=== PATIENT | female | born 1985 | race Caucasian/White ===

== ENCOUNTER 2019-04-28 04:32 | Emergency (ER) | payer SELFPAY ==
[~2019-04-28] VITALS: Ht 157.5 cm; Wt 61.2 kg
[2019-04-28 04:53] VITALS: BP 127/85
[2019-04-28] MEDS ORDERED: TRAM-48 PO ×2 (05:11→05:12)
[2019-04-28] MEDS ORDERED: SULF1TAB24 PO (05:12)
--- NOTE | 2019-04-28 05:12 | PHYS DOC ---
Past Medical History Past Medical History: No Pertinent History Smoking: Cigarettes Adult General Chief Complaint Chief Complaint: ABSCESS HPI HPI Patient is a 33 year old female who presents with complaining of abscess. Patient states she had a "zit"on her face and was messing with it and scratched the area in left temporal area yesterday and since then has increasing pain and edema and was not able to sleep all night. Patient rated his pain 8 total night and denies drainage of pus, fever and chills, nausea and vomiting, blurred vision. Patient had history of previous MRSA. Last tetanus immunization was 4 years ago. Review of Systems Review of Systems Constitutional: Denies fever or chills [] Eyes: Denies change in visual acuity, redness, or eye pain [] HENT: Denies nasal congestion or sore throat [] Respiratory: Denies cough or shortness of breath [] Cardiovascular: No additional information not addressed in HPI [] GI: Denies abdominal pain, nausea, vomiting, bloody stools or diarrhea [] : Denies dysuria or hematuria [] Musculoskeletal: Denies back pain or joint pain [] Integument: Denies rash, reports skin lesions [] Neurologic: Denies headache, focal weakness or sensory changes [] Endocrine: Denies polyuria or polydipsia [] All other systems were reviewed and found to be within normal limits, except as documented in this note. Current Medications Current Medications Current Medications Medications (Trade) Dose Ordered Sig/Chaz Start Time Stop Time Status Last Admin Dose Admin Tramadol HCl (Ultram) 50 mg 1X ONCE 04/28/19 05:30 04/28/19 05:31 DC 04/28/19 05:19 50 MG Trimethoprim/ Sulfamethoxazole (Bactrim Ds) 1 tab 1X ONCE 04/28/19 05:30 04/28/19 05:31 DC 04/28/19 05:19 1 TAB Allergies Allergies Allergies Coded Allergies Type Severity Reaction Last Updated Verified No Known Drug Allergies 04/28/19 No Physical Exam Physical Exam Constitutional: Well developed, well nourished, mild distress, non-toxic appear ance. [] HENT: Normocephalic, atraumatic, area of edema and left temporal area with central puncture wound without erythema, drainage of pus or fluctuation. Eyes: PERRLA, EOMI, conjunctiva normal, no discharge. [] Neck: Normal range of motion, no tenderness, supple, no stridor. [] Cardiovascular:Heart rate regular rhythm, no murmur [] Lungs & Thorax: Bilateral breath sounds clear to auscultation [] Neurologic: Alert and oriented X 3, no focal deficits noted. [] Psychologic: Affect anxious, judgement normal, mood normal. [] Current Patient Data Vital Signs Vital Signs Date Time Temp Pulse Resp B/P (MAP) Pulse Ox O2 Delivery O2 Flow Rate FiO2 04/28/19 05:19 16 Room Air 04/28/19 04:53 98.5 81 127/85 (99) 97 98.5 EKG EKG [] Radiology/Procedures Radiology/Procedures [] Course & Med Decision Making Course & Med Decision Making Evaluation of patient in ER showed 33 y/o female with left temporal facial area cellulitis without abscess. Rx for Bactrim and Ultram was given. Dragon Disclaimer Dragon Disclaimer This electronic medical record was generated, in whole or in part, using a voice recognition dictation system. Departure Departure Impression: Primary Impression: Cellulitis and abscess of face Disposition: HOME, SELF-CARE (at [id number]) Condition: STABLE Patient Instructions: Cellulitis, Community-Associated MRSA Additional Instructions: Drink plenty of liquids Follow-up with your primary care physician in 2-3 days Return to ER if not getting better Scripts Tramadol Hcl (ULTRAM) 50 Mg Tablet 50 MG PO Q6HRS PRN for PAIN, #14 TAB 0 Refills Prov: NEIDA WILKINS MD 04/28/19 Sulfamethoxazole/Trimethoprim (BACTRIM DS TABLET) 1 Each Tablet 1 TAB PO BID for infection, #14 TAB Prov: NEIDA WILKINS MD 04/28/19 Tramadol Hcl (ULTRAM) 50 Mg Tablet 50 MG PO Q6HRS PRN for PAIN, #14 TAB 0 Refills Prov: NEIDA WILKINS MD 04/28/19 NEIDA WILKINS MD Apr 28, 2019 05:12
[2019-04-28] MEDS ORDERED: SMZ/TMP 800/160MG TABLET. PO ONE (05:30)
[2019-04-28] MEDS ORDERED: traMADol 50 MG TABLET PO ONE (05:30)
[2019-04-29] MEDS ORDERED: CEPH-264 PO (14:38)
[2019-04-29] MEDS ORDERED: NAPR-514 PO (14:38)
== END 2019-04-28 05:38 | disposition home or self-care (01) ==
LOC: ER 04:32
DX: L03.211 Cellulitis of face (principal); F17.210 Nicotine dependence, cigarettes, uncomplicated; Z86.14 Personal history of Methicillin resistant Staphylococcus aureus infection
CPT/HCPCS: 99283

== ENCOUNTER 2019-04-29 11:59 | Emergency (ER) | payer SELFPAY ==
[~2019-04-29] VITALS: Ht 157.5 cm; Wt 61.2 kg
[~2019-04-29 11:59] MED LIST: SULF1TAB24 PO; TRAM-48 PO
[2019-04-29 13:55] VITALS: BP 127/87
--- NOTE | 2019-04-29 14:25 | PHYS DOC ---
Past Medical History Past Medical History: No Pertinent History Past Surgical History: Additional Information: 1 ppd since 16 years old Alcohol Use: None Drug Use: None Adult General Chief Complaint Chief Complaint: FACE PROBLEM HPI HPI Patient is a 33 year old female, accompanied by her significant other, who presents to the emergency department with complaints of increased swelling below her left eye and no improvement in her redness after being diagnosed with facial cellulitis and prescribed Bactrim by Dr. Eugene here in this emergency departmen t early yesterday morning. She denies any fever, vision changes, increased pain, drainage from her left eye, or headache. States she uses swelling increased because she is allergic to the tramadol was prescribed. She denies any shortness of breath, chest pain, wheezing, nausea, vomiting, or abdominal pain. She currently rates her pain as 7 out of 10 on the pain scale, she denies any alleviating factors, the pain increases if the area is touched. Review of Systems Review of Systems Constitutional: Denies fever or chills [] Eyes: Denies change in visual acuity, see history of present illness HENT: Denies nasal congestion or sore throat [] Respiratory: Denies cough or shortness of breath [] Cardiovascular: No additional information not addressed in HPI [] GI: Denies abdominal pain, nausea, vomiting, or diarrhea [] Musculoskeletal: Denies back pain or joint pain [] Integument: See history of present illness Neurologic: Denies headache, focal weakness or sensory changes [] Complete systems were reviewed and found to be within normal limits, except as documented in this note. Allergies Allergies Allergies Coded Allergies Type Severity Reaction Last Updated Verified tramadol Allergy Mild Rash 04/29/19 Yes Physical Exam Physical Exam Constitutional: Well developed, well nourished, no acute distress, non-toxic appearance. [] HENT: Normocephalic, atraumatic, bilateral external ears normal, oropharynx moist, no oral exudates, nose normal. [] Eyes: PERRLA, EOMI, conjunctiva normal, no discharge; mild swelling noted to l eft upper and lower eyelid, no purulent drainage, no tearing. [] Neck: Normal range of motion, no tenderness, supple, no stridor. [] Lungs & Thorax: Respirations even and unlabored, no retractions, no respiratory distress Skin: Warm, dry; Area of erythema, warmth, tenderness, and mild edema noted to left temporal are with central scabbed area without fluctuance or drainage. . Extremities: No tenderness, no cyanosis, no clubbing, ROM intact, no edema. [] Neurologic: Alert and oriented X 3, no focal deficits noted. [] Psychologic: Affect normal, judgement normal, mood normal. [] Current Patient Data Vital Signs Vital Signs Date Time Temp Pulse Resp B/P (MAP) Pulse Ox O2 Delivery O2 Flow Rate FiO2 04/29/19 13:55 98.1 78 20 127/87 (100) 99 Room Air 98.1 EKG EKG [] Radiology/Procedures Radiology/Procedures [] Course & Med Decision Making Course & Med Decision Making Pertinent Labs and Imaging studies reviewed. (See chart for details) dx: facial cellulitis prescriptions written for keflex and naproxen Pt instructed to apply warm moist packs to the affected area every 1-2 hours as needed for comfort. Fill the prescriptions and use them as directed. Continue taking the Bactrim that was prescribed. Follow-up with primary care doctor in 1- 2 days for wound recheck. Return to the emergency room if your symptoms worsen or youd develop fever or vision changes. Patient verbalized an understanding of home care, medications, follow-up, and return to ED instructions and was in agreement with the plan of care. [] Dragon Disclaimer Dragon Disclaimer This electronic medical record was generated, in whole or in part, using a voice recognition dictation system. Departure Departure Impression: Primary Impression: Cellulitis and abscess of face Disposition: HOME, SELF-CARE Condition: STABLE Referrals: UNKNOWN PCP NAME (PCP) Patient Instructions: Cellulitis, [id number] Additional Instructions: Apply warm moist packs to the affected area every 1-2 hours as needed for comfort. Fill the prescriptions and use them as directed. Continue taking the Bactrim that was prescribed. Follow-up with primary care doctor in 1-2 days for wound recheck. Return to the emergency room if your symptoms worsen or youd develop fever or vision changes. Scripts Naproxen (NAPROXEN) 500 Mg Tablet 1 TAB PO BID PRN for PAIN for 10 Days, #20 TAB 0 Refills Prov: KEM GONZALES APRN 04/29/19 Cephalexin (KEFLEX) 500 Mg Capsule 500 MG PO QID for 7 Days, #28 CAP 0 Refills Prov: KEM GONZALES APRN 04/29/19 KEM GONZALES APRN Apr 29, 2019 14:25
[2019-04-29] MEDS ORDERED: CEPH-264 PO (14:38)
[2019-04-29] MEDS ORDERED: NAPR-514 PO (14:38)
== END 2019-04-29 14:45 | disposition home or self-care (01) ==
LOC: ER 11:59
DX: L03.211 Cellulitis of face (principal); L02.01 Cutaneous abscess of face; F17.200 Nicotine dependence, unspecified, uncomplicated; Z98.890 Other specified postprocedural states; Z88.5 Allergy status to narcotic agent
CPT/HCPCS: 99283